=== PATIENT | female | born 1935 | race Caucasian/White ===

== ENCOUNTER 2017-10-06 14:14 | Emergency (ER) | payer MEDICARE ==
[2017-10-06 14:50] VITALS: BP 149/71
[2017-10-06] MEDS ORDERED: Albuterol 2.5 MG/3 ML NEB.SOL* (0.083%) INH ONE (15:08)
--- NOTE | 2017-10-06 15:08 | UC ---
UC General HPI - HPI Summary HPI Summary: pt is c/o a cough with chest congestion, throat irritation and hoarse voice. denies fever, cp, sob. went to her pcp and tx with mucinex. states seems to be worsening. - History of Current Complaint Chief Complaint: UCGeneralIllness Stated Complaint: ST/COUGH Time Seen by Provider: 10/06/17 15:02 Hx Obtained From: Patient Onset/Duration: Gradual Onset Timing: Constant Pain Intensity: 0 Aggravating: nothing Associated Signs & Symptoms: Positive: Cough. Negative: Chest Pain, Diaphoresis , Fever, SOB, Wheezing - Allergy/Home Medications Allergies/Adverse Reactions: Allergies Allergy/AdvReac Type Severity Reaction Status Date / Time NSAIDS (Non-Steroidal AdvReac See Comment Verified 10/06/17 14:54 Anti-Inflamma Home Medications: Home Medications Acetaminophen [Tylenol Arthritis] 650 mg PO Q8H PRN 10/06/17 [History Confirmed 10/06/17] Fluticasone NASAL SPRAY 50MCG* [Flonase NASAL SPRAY 50MCG*] 2 spray BOTH NARES DAILY 10/06/17 [History Confirmed 10/06/17] Loratadine 10 mg PO DAILY PRN 10/06/17 [History Confirmed 10/06/17] Valsartan/Hydrochlorothiazide [Valsartan-Hctz 320-12.5 mg Tab] 1 each PO DAILY 10/06/17 [History Confirmed 10/06/17] guaiFENesin ER TAB [Mucinex*] 600 mg PO BID 10/06/17 [History Confirmed 10/06/17 ] PMH/Surg Hx/FS Hx/Imm Hx Endocrine History: Dyslipidemia Cardiovascular History: Hypertension - Surgical History Surgical History: Yes Surgery Procedure, Year, and Place: cataracts - Family History Known Family History: Positive: Unknown - Social History Occupation: Retired Lives: Alone Alcohol Use: None Substance Use Type: None Smoking Status (MU): Never Smoked Tobacco - Immunization History Vaccination Up to Date: Yes Review of Systems Constitutional: Negative Skin: Negative Eyes: Negative ENT: Sore Throat Respiratory: Cough Cardiovascular: Negative Gastrointestinal: Negative Genitourinary: Negative Motor: Negative Neurovascular: Negative Musculoskeletal: Negative Neurological: Negative Psychological: Negative Is Patient Immunocompromised?: No All Other Systems Reviewed And Are Negative: Yes Physical Exam Triage Information Reviewed: Yes Appearance: Well-Appearing Vital Signs: Initial Vital Signs Temp 98.2 F 10/06/17 14:46 Pulse 94 10/06/17 14:46 Resp 18 10/06/17 14:46 BP 149/71 10/06/17 14:46 Pulse Ox 95 10/06/17 14:46 Vital Signs Reviewed: Yes Eyes: Positive: Conjunctiva Clear ENT: Positive: Pharynx normal, TMs normal, Hoarse voice, Uvula midline. Negative: Nasal drainage, Tonsillar swelling, Tonsillar exudate, Trismus, Muffled voice Neck: Positive: Supple, Nontender, No Lymphadenopathy Respiratory: Positive: No respiratory distress, Decreased breath sounds, Crackles - RLL Cardiovascular: Positive: RRR, No Murmur Abdomen Description: Positive: Nontender, No Organomegaly, Soft Bowel Sounds: Positive: Present Musculoskeletal: Positive: ROM Intact, Edema @ - trace R ankle(pt states chronic and unchanged) Neurological: Positive: Alert Psychological: Positive: Age Appropriate Behavior Skin Exam: Normal Diagnostics - Radiology No standard instances Xray Interpretation: No Acute Changes Radiology Interpretation Completed By: Radiologist - cxr Re-Evaluation - Re-Evaluation Second Eval Re-Evaluation Time: 15:50 Change: Unchanged - pt felt no different post neb tx. faint end insp crackles RLL post neb. Course/Dx - Course Course Of Treatment: HX HTN, tx plus acutely ill. no concern for current BP. non toxic, not hypoxic. ill for over 1 week and worsening plus focal crackles RLL thus will tx with doxycycline x 1 week and close f/u - Differential Dx - Multi-Symptom Provider Diagnoses: Congested cough. Possible early pneumonia Discharge - Sign-Out/Discharge Documenting (check all that apply): Discharge/Admit/Transfer - Discharge Plan Condition: Stable Disposition: HOME Prescriptions: DOXYcycline CAP(*) [DOXYcycline 100MG CAP(*)] 100 mg PO BID #14 cap Patient Education Materials: Acute Cough (ED) Referrals: Linad Cruz MD [Primary Care Provider] - 5 Days - Billing Disposition and Condition Condition: STABLE Disposition: HOME
--- NOTE | 2017-10-06 15:30 | RAD ---
HISTORY: Cough COMPARISONS: None VIEWS: 4: Frontal dual-energy and lateral views of the chest. FINDINGS: CARDIOMEDIASTINAL SILHOUETTE: The cardiomediastinal silhouette is normal. TAMERA: The tamera are normal. PLEURA: The costophrenic angles are sharp. No pleural abnormalities are noted. LUNG PARENCHYMA: There is hyperinflation with flattening of the diaphragm and expansion of the AP diameter of the chest. ABDOMEN: The upper abdomen is clear. There is no subphrenic gas. BONES AND SOFT TISSUES: Degenerative changes are noted along the spine. OTHER: None. IMPRESSION: HYPERINFLATION, CONSISTENT WITH COPD. NO ACTIVE CARDIOPULMONARY DISEASE.
== END 2017-10-06 16:06 | disposition home or self-care (01) ==
LOC: UCCORT 14:14
DX: R05 Cough (principal); Z88.6 Allergy status to analgesic agent; I10 Essential (primary) hypertension
CPT/HCPCS: 71046; 99212; G0463

== ENCOUNTER 2019-07-11 08:45 | Emergency (ER) | payer MEDICARE ==
--- OUTSIDE RECORDS SUMMARY | 2019-07-11 08:56 | XMS REPORT | Continuity of Care Document ---
:1935 External Reference #:[id number] Author Name Linda Cruz MD Address [address] [place] [address] Care Team Providers Name Role Phone Mena Hamm - Ophthalmology Care Team Information Betting Clerk Kelvin Mayfield MD - Neurological Care Team Information Betting Clerk [phone] Surgery Problems Active Problems Provider Date Glaucoma Linda Cruz MD Onset: 08/25/2012 Osteochondropathy Linda Cruz MD Onset: 08/25/2012 Overweight Linda Cruz MD Onset: 02/12/2011 Herpes zoster with complication Linda Cruz MD Onset: 09/25/2010 Mixed hyperlipidemia Linda Cruz MD Onset: 08/07/2010 Benign essential hypertension Linda Cruz MD Onset: 08/07/2010 Carotid artery occlusion Linda Cruz MD Onset: 08/07/2010 Impaired fasting glycaemia Linda Cruz MD Onset: 08/07/2010 Osteoporosis Linda Cruz MD Onset: 08/07/2010 Gastroesophageal reflux disease Linda Cruz MD Onset: 08/07/2010 Pure hypercholesterolemia Onset: 08/31/2014 Primary open-angle glaucoma, moderate stage Linda Cruz MD Onset: 08/31 Cerebral arterial aneurysm Linda Cruz MD Onset: 03/01/2015 Essential hypertension Linda Cruz MD Onset: 03/01/2015 Late effects of cerebrovascular disease Linda Cruz MD Onset: 2014 Bilateral primary open angle glaucoma Linda Cruz MD Onset: 10/10/2016 Allergic rhinitis Linda rCuz MD Onset: 04/24/2018 Disorder of bone density and structure, Linda Cruz MD Onset: 2017 unspecified Type 2 diabetes mellitus Linda Cruz MD Onset: 11/09/2018 Cerebral arterial aneurysm Linda Cruz MD Onset: 05/14/2019 Social History Type Date Description Comments Sex Unknown ETOH Use Rarely consumes alcohol Tobacco Use Start: Unknown End: Patient is a former occasionally for a few Unknown smoker years when she was young Smoking Status Reviewed: 11/09/18 Patient is a former occasionally for a few smoker years when she was young Exercise Exercises regularly Exercises regularly, Type/Frequency 4-5 times per week for 30min, occ yoga Allergies, Adverse Reactions, Alerts Description No Known Drug Allergies Medications Active Medications SIG Qnty Indications Ordering Date Provider Omeprazole 1 by mouth every 90caps K21.9 [place], 12/04/2017 20mg day 30min before MD Linda Capsules DR a meal Potassium Chloride ER 1 by mouth every 100tabs I10 [place], 05/06/2017 day MD Linda 10Meq Tablets ER Valsartan-Hydrochloro take by mouth one 90tabs I10 [place], 04/14/2017 thiazide tablet daily in MD Linda 320-12.5mg the morning Tablets Centrum Silver Ultra 1 by mouth daily M85.9 [place], 03/01/2015 Womens with meal with MD Linda Tablets meat fat oil Claritin 1 by mouth every J30.9 [place], 03/02/2014 10mg Capsules day prn caution MD Linda sedation Atorvastatin Calcium 1 by mouth every 90tabs E78.2 [place], 03/02/2014 day MD Linda 10mg Tablets Aspirin Adult Low 1 by mouth every I67.1 [place], 08/07/2010 Strength day MD Linda 81mg Tablets DR E78.2 Amlodipine Besylate 1 by mouth daily 90tabs I10 Linda Cruz MD 08/07 10mg Tablets Dorzolamide Instill 1 Drop In H40.1131 Unknown HCL/Timolol Maleate Both Eyes bid 22.3-6.8mg/ml Solution Latanoprost Instill 1 GTT In H40.1131 Unknown 0.005% [facility] Solution Immunizations CPT Code Status Date Vaccine Reaction Lot # [id number] Given 02/05/2019 Flu Vaccine NOS Q2039 Given 02/05/2018 Flu Vaccine NOS GIVEN AT PHARMACY Q2039 Given 01/29/2017 Flu Vaccine NOS given at [facility] [address] Given 02/15/2016 Influenza, Preservative Free Given at [facility],[address],[place] [address] Given 01/31/2016 Fluzone Highdose Age 65 And Over Preservative & Antibiotic Free 75519 Given 03/11/2015 Fluzone Highdose Age 65 And [facility] Preservative & Antibiotic Free 88799 Given 03/01/2015 Prevnar 13 Pneumococal [id number] Conjugate Vaccine 69585 Given 08/31/2014 Tdap (Adacel) Ages 7 And [id number] Above Only 63956 Given 03/07/2014 Afluria Or Fluvirin Flu Vac Intramuscular 48118 Given 02/26/2013 Afluria Or Fluvirin Flu Vac Intramuscular 94265 Given 02/17/2012 Afluria Or Fluvirin Flu Vac Intramuscular 81246 Given 05/26/2011 Zoster (Zostavax) 79414 Given 02/12/2011 Afluria Or Fluvirin Flu Vac Intramuscular 26806 Given 07/16/2004 Immunization Td 7 Yrs Or Older 09399 Given 03/29/2002 Pneumococcal 23 Immunization Adult Or Immunosuppressed Patient 88331 Refused 05/14/2019 Shingrix (Shingles) Zoster aware can get at pharmacy Vaccine HZV, Recombinant, Subunit, Adj Vital Signs Date Vital Result Comment 05/14/2019 1:05pm Weight 164.00 lb Heart Rate 80 /min BP Systolic 136 mmHg BP Diastolic 80 mmHg Respiratory Rate 18 /min Height 60.5 inches 5'0.50" BMI (Body Mass Index) 31.5 kg/m2 11/09/2018 1:41pm Weight 162.00 lb Heart Rate 76 /min BP Systolic 134 mmHg BP Diastolic 74 mmHg Respiratory Rate 18 /min Height 60.5 inches 5'0.50" BMI (Body Mass Index) 31.1 kg/m2 Results Test Acquired Date Facility Test Result H/L Range Note Comprehensive Met 05/10/2019 [facility] Sodium 133 mmol/L Low 135-146 1, 2 [facility] Potassium 3.6 mmol/L 3.5-5.2 Chloride# 95 mmol/L Low 97-110 3 Carbon Dioxide 29 mmol/L 24-34 Calcium 8.9 mg/dL 8.5-10.5 4 Glucose 131 mg/dL High 70-105 BUN 15 mg/dL 6-26 Creatinine 0.7 mg/dL 0.5-1.4 Total Protein 6.6 g/dL 6.0-8.0 Albumin 4.4 g/dL 3.6-4.9 Globulin 2.2 g/dL 2.0-3.5 A/G Ratio 2.0 Ratio 1.0-2.2 Total Bilirubin 0.3 mg/dL 0.1-1.3 Alkaline Phosphatase 88 U/L 24-140 Alt 18 U/L 3-42 Ast 16 U/L 8-42 Anion Gap 9 mmol/L 5-15 5 Female Egfr 81 >60 6 Male Egfr 88 >60 7 Lipid 05/10/2019 [facility] Cholesterol 154 mg/dL 50-199 Triglycerides 107 mg/dL 30-200 HDL 52 mg/dL 35-85 8 Chol/ HDL Ratio 3.0 ratio Low 3.7-5.6 VLDL 21 mg/dL 2-29 LDL (Calc) 81 mg/dL 20-99 9 Laboratory test finding 05/10/2019 [facility] CPK 56 U/L 12-199 Hemoglobin A1c 05/10/2019 [facility] Hemoglobin A1c 6.9 % High 4.1-5.9 Estimated Average Glucose Calc 151 mg/dL High 71-140 Laboratory test finding 05/10/2019 [facility] TSH 1.80 uIU/mL 0.35-4.94 1 before visit 05/2018 2 Updated reference range on new analyzer 3 Updated reference range on new analyzer 4 Updated reference range 09-09-2018 5 Updated Reference Range 6 Concerning GFR Guidelines for Americans: Normal function or mild renal disease, if clinically at risk: >/= 60 mL/min Moderately decreased: 30-59 Severely decreased: 15-29 Renal failure: <15 There is reduced accuracy above 60ml/min/1.73 m squared, but the numeric value may be clinically useful in the near 60 range 7 Concerning GFR Guidelines: Normal function or mild renal disease, if clinically at risk: >/= 60 mL/min Moderately decreased: 30-59 Severely decreased: 15-29 Renal failure: <15 There is reduced accuracy above 60ml/min/1.73 m squared, but the numeric value may be clinically useful in the near 60 range Glomerular Filtration Rate (GFR) is estimated based on the CKD-EPI equation, which assumes a steady state for creatinine as recommended by the National Kidney Disease Education Program in conjunction with the National Institutes of Health and the National Kidney Foundation. Clinical conditions in which it may be necessary to measure GFR by using clearance methods include extremes of age and body size, severe malnutrition or obesity, diseases of skeletal muscle, paraplegia or quadriplegia, vegetarian diet, rapidly changing kidney function, and calculation of the dose of potentially toxic drugs that are excreted by the kidneys. 8 Per NCEP ATP III Guidelines: Results lower than 40 mg/dL are suggestive of increased risk for coronary artery disease. Results > or = to 60 mg/dL are considered a negative risk factor. 9 Per NCEP ATP III Guidelines: Normal Population <130 Patients with medical conditions: CHD/DM Optimal: <100 Borderline high: 130-159 High: 160-189 Very high: >189 Procedures Date Code Description Status 08/10/2013 70471191 Mammogram Completed 02/24/2012 871018425 Bone Mineral Density Test Completed 04/11/2010 41443525 Colonoscopy Completed Medical Devices Description No Information Available Encounters Description No Information Available Assessments Date Code Description Provider 05/14/2019 E87.1 Hypo-osmolality and hyponatremia Linda Cruz MD 05/14/2019 E11.9 Type 2 diabetes mellitus without Linda Cruz MD complications 05/14/2019 I10 Essential (primary) hypertension Linda Cruz MD 05/14/2019 E78.2 Mixed hyperlipidemia Linda Cruz MD 05/14/2019 I67.1 Cerebral aneurysm, nonruptured Linda Cruz MD 05/14/2019 K21.9 Gastro-esophageal reflux disease without Linda Cruz MD esophagitis 05/14/2019 I65.23 Occlusion and stenosis of bilateral carotid Linda Cruz MD arteries 05/14/2019 H40.1131 Primary open-angle glaucoma, bilateral, mild Linda Cruz MD stage 05/14/2019 J30.9 Allergic rhinitis, unspecified Linda Cruz MD 05/14/2019 M85.9 Disorder of bone density and structure, Linda Cruz MD unspecified 05/14/2019 E66.9 Obesity, unspecified Linda Cruz MD 05/14/2019 Z68.31 Body mass index (BMI) 31.0-31.9, adult Linda Cruz MD 05/10/2019 I10 Essential (primary) hypertension Linda Cruz MD 05/10/2019 I10 Essential (primary) hypertension Schedule, Laboratory 05/10/2019 E78.2 Mixed hyperlipidemia Linda Cruz MD 05/10/2019 E78.2 Mixed hyperlipidemia Schedule, Laboratory 05/10/2019 E11.9 Type 2 diabetes mellitus without Linda Cruz MD complications 05/10/2019 E11.9 Type 2 diabetes mellitus without Schedule, Laboratory complications 05/10/2019 I10 Essential (primary) hypertension [facility] 05/10/2019 E78.2 Mixed hyperlipidemia [facility] 05/10/2019 E11.9 Type 2 diabetes mellitus without [facility] complications Plan of Treatment Future Appointment(s):11/08/2019 10:00 am - Schedule, Laboratory at [facility]2019 2:00 pm - Linda Cruz MD at [facility]05/14/2019 - Linda Cruz MDE87.1 Hypo-osmolality and hyponatremiaComments:low sodium. She is running low again, not adding any salt to food, and eating very low salt to beginwith. Advised low sodium can cause arrhythmia, dizziness, confusion, other problems. Recommend she add on 1 pinch of salt (which is about 500mg) to 2 meals a day to help. We will monitorFollow up:next visit early November for 30min annual [facility] nonfasting labs 5 days [id number] Type 2 diabetes mellitus without complicationsNew Labs:Hemoglobin A1c, Scheduled: 11/08/19Comments:DM--New diagnosis meeting criteria with repeated fasting glucose over 126 and glyco over 6.5. in 11/2018You have stable control of your diabetes with diet control I don't recommend doing any fingersticks or meds. But call/ seek care for increased thirst, urine frequency. Continue to target hgba1c <8Continue statin therapy Continue good bp control Please check your feet daily for injuries/wounds.Please see the optho/eye doc [id number] Essential (primary) hypertensionNew Labs:Comprehensive Met Panel-[facility], Scheduled: 11/08/19Comments: Htn--BPs appear stable and in good control, reminded goal of BP < 150/90 given age and conditions. Continue current meds, please call for medication side effects such as cough, rash or any concerns. Encouraged diet modified in fat and no added salt. Limit alcohol to < 1 per day. Encouraged regular exercise of 30 min most days per week. Encouraged pt to continue to monitor BP and call if > 140/90 on a regular basis. Please call if you feel your blood pressure is under 110 systolic and/or causing you symptoms such as dizziness, lightheadedness, or other concerns.E78.2 Mixed hyperlipidemiaNew Labs :Lipid, Scheduled: 11/08/19CPK, Scheduled: 11/08/19Comments:high cholper AHA guidelines due to known carotid artery plaquing, cerebral aneurysm, there is higher cardiovascular riskShe has been very stable, no strokes or heart attacks on the lower dose atorvastatin, she wants to continue current medications continue aspirin 81mg daily is also recommended. For lifestyle, we also recommend: Low fat ( under 30gm per day), low chol diet ( under 300mg per day chol)focus on lean meat, nonfat 1% dairy, increased veg and fruit, whole grains weight lossexercise buildto at least 30min per day. Reviewed signs and symptoms of cardiovascular disease.I67.1 Cerebral aneurysm, nonrupturedComments:middle cerebral artery aneurysm, right, care with Dr Lisandro Lester , neurosurgery, last visit 11/10/2018, has annual followup target good bp control with bp sys under 130. continue yseujciC89.9 Gastro-esophageal reflux disease without esophagitisNew Labs:Vitamin B12, Scheduled: 11/08/19Magnesium, Scheduled: Comments:GERD/esophagitis--Symptoms moderately well controlled on current acid laura therapy. Reminded pt we need to control the symptoms as those symptoms would be signs of gastric acid eroding on the esophagus, which can lead to complications. Call if has heartburn more than 2 - 3 times per week. Pt should take meds to control any break through symptoms. Please be sure to take your acid laura 30minbefore a meal. Discussed gerd precautions. limit caffeine to 1-2 per dayavoid foods that aggravateeat several smaller meals through the day instead of a few larger onesrecommend no food or drinks for2 hours before bed, le if you have night time symptoms. you should seek care if symptoms are not controlled with usual meds. She has not tolerated tapering of omeprazole Reminded risks for half-way use, check labs next timeI65.23 Occlusion and stenosis of bilateral carotid arteriesComments:carotid artery mild plaqueing on dopplers 08/2013,She continues on aspirin. She continues on a statin. Medicare will not pay for another test unless there are symptoms for mild plaque history.H40.1131 Primary open-angle glaucoma, bilateral, mild stageComments:glaucoma care with Dr HammJ30.9 Allergic rhinitis, unspecifiedComments:allergies--Encouraged pt to continue allergy meds during allergy season. Should take daily to gain the most benefit. Call prn increased allergy symptoms to add additional meds.M85.9 Disorder of bone density and structure, unspecifiedComments:osteopenia. last dexa 09/2011, had numbers in osteopenia range, but not severe enough to warrant medications. Counselled pt to consume either 3 dairy servings per day or no more than calcium 600mg twice daily with meals, and enough vit d to get to goal. Reviewed supplement options. Also regular weight bearing exercise is [id number] Obesity, unspecifiedComments:continue to work on diet, exercise , weight lossZ68.31 Body mass index (BMI) 31.0-31.9, adultComments:recommend reduced calorie diet and healthy diet and regular exercise to help with weight loss patient continues to work on reduced calorie diet and regular exercise Functional Status Description No Information Available Mental Status Description No Information Available Referrals Description No Information Available
[2019-07-11 09:07] VITALS: BP 150/73
--- NOTE | 2019-07-11 09:53 | UC ---
Back Pain HPI - HPI Summary HPI Summary: Pt presents with c/o right side back and rib pain. Pt states she tripped at home and fell from standing height. Pt denies CP, dizziness, loss of consciousness or hitting head, - History of Current Complaint Chief Complaint: UCBackPain Stated Complaint: BACK PAIN Time Seen by Provider: 07/11/19 09:30 Hx Obtained From: Patient ?: No Onset/Duration: Sudden Onset, Still Present Timing: Constant Severity Initially: Moderate Severity Currently: Moderate Pain Intensity: 10 Back Pain: Is Diffuse - back and ribs Character: Dull, Aching Aggravating Factor(s): Movement, Lifting, Bending, Walking, Cough Alleviating Factor(s): Rest, Position Associated Signs And Symptoms: Positive: Weakness - Risk Factors AAA Risk Factors: Negative TAD Risk Factors: Negative Cauda Equina Risk Factors: Negative Epidural Abscess Risk Factors: Negative - Allergies/Home Medications Allergies/Adverse Reactions: Allergies Allergy/AdvReac Type Severity Reaction Status Date / Time NSAIDS (Non-Steroidal AdvReac See Comment Verified 07/11/19 09:02 Anti-Inflamma Home Medications: Home Medications Aspirin EC TAB* [Ecotrin EC Low Dose 81 MG*] 81 mg PO DAILY 10/12/15 [History Confirmed 07/11/19] Atorvastatin* [Lipitor 10 MG*] 10 mg PO QPM 10/12/15 [History Confirmed 07/11/19 ] Dorzolamide/Timolol OPTH (NF) [Cosopt (NF)] 1 drop BOTH EYES BID 10/12/15 [ History Confirmed 07/11/19] Latanoprost 0.005%* [Xalatan 0.005%*] 1 drop BOTH EYES QPM 10/12/15 [History Confirmed 07/11/19] Multivitamins/Minerals TAB* [Thera M Plus TAB*] 1 tab PO DAILY 10/12/15 [ History Confirmed 07/11/19] Potassium Chlor TAB* [Klor Con ER TAB 10 MEQ*] 10 meq PO DAILY 10/12/15 [ History Confirmed 07/11/19] amLODIPine TAB* [Norvasc 5 mg TAB*] 10 mg PO DAILY 10/12/15 [History Confirmed 07/11/19] diPHENhydraMINE PO* [Benadryl PO 25 MG TAB*] 25 mg PO BEDTIME PRN 10/12/15 [ History Confirmed 07/11/19] Acetaminophen [Tylenol Arthritis] 650 mg PO Q8H PRN 10/06/17 [History Confirmed 07/11/19] Loratadine 10 mg PO DAILY PRN 10/06/17 [History Confirmed 07/11/19] Valsartan/Hydrochlorothiazide [Valsartan-Hctz 320-12.5 mg Tab] 1 each PO DAILY 10/06/17 [History Confirmed 07/11/19] Ranitidine TAB (NF) [Zantac TAB (NF)] 150 mg PO DAILY 07/11/19 [History Confirmed 07/11/19] PMH/Surg Hx/FS Hx/Imm Hx Previously Healthy: Yes Endocrine History: Dyslipidemia Cardiovascular History: Cardiac Disease, Hypertension - Surgical History Surgical History: Yes Surgery Procedure, Year, and Place: cataracts. cholecystectomy. tubal ligation - Family History Known Family History: Positive: Unknown - Social History Occupation: Retired Lives: Alone Alcohol Use: None Substance Use Type: None Smoking Status (MU): Never Smoked Tobacco Have You Smoked in the Last Year: No - Immunization History Vaccination Up to Date: Yes Review of Systems All Other Systems Reviewed And Are Negative: Yes Constitutional: Positive: Negative Skin: Positive: Negative Eyes: Positive: Negative ENT: Positive: Negative Respiratory: Positive: Other - c/o rib/ back pain with inspiration Cardiovascular: Positive: Negative Gastrointestinal: Positive: Negative Genitourinary: Positive: Negative Motor: Positive: Decreased ROM - generalized due to tenderness Neurovascular: Positive: Negative Musculoskeletal: Positive: Arthralgia - rigth side rib, back, Decreased ROM, Myalgia Neurological/Mental Status: Positive: Negative Psychological: Positive: Negative Is Patient Immunocompromised?: No Physical Exam Triage Information Reviewed: Yes Appearance: Well-Appearing Vital Signs: Initial Vital Signs Temp 96.9 F 07/11/19 09:03 Pulse 91 07/11/19 09:03 Resp 18 07/11/19 09:03 BP 150/73 07/11/19 09:03 Pulse Ox 99 07/11/19 09:03 Vital Signs Reviewed: Yes Eye Exam: Normal ENT Exam: Normal Dental Exam: Normal Neck exam: Normal Respiratory: Positive: Decreased breath sounds Cardiovascular Exam: Normal Musculoskeletal: Positive: ROM Limited @ - trunk/ribs Neurological Exam: Normal Psychological Exam: Normal Skin Exam: Normal Diagnostics - Radiology No standard instances Radiology Interpretation Completed By: Radiologist - positive for rib fractures Back Pain Course/Dx - Differential Dx/Diagnosis Differential Diagnosis/HQI/PQRI: Fracture, Strain, Sprain Provider Diagnosis: Ribs, multiple fractures Discharge ED - Sign-Out/Discharge Documenting (check all that apply): Patient Departure All imaging exams completed and their final reports reviewed: Yes - Discharge Plan Condition: Stable Disposition: HOME Patient Education Materials: Rib Fracture (ED) Referrals: Joshua Treadwell MD [Medical Doctor] - If Needed Linda Cruz MD [Primary Care Provider] - 2 Weeks Additional Instructions: Please follow up with your PCP in 2 weeks or as needed. If your symptoms do not improve or they worsen, please seek help as soon as possible. Please use the inspirometer as directed. - Billing Disposition and Condition Condition: STABLE Disposition: Home
== END 2019-07-11 10:31 | disposition home or self-care (01) ==
LOC: UCCORT 08:45
DX: S22.41XA Multiple fractures of ribs, right side, initial encounter for closed fracture (principal); I10 Essential (primary) hypertension; E78.5 Hyperlipidemia, unspecified; W18.39XA Other fall on same level, initial encounter; Y92.9 Unspecified place or not applicable; Z88.6 Allergy status to analgesic agent; Z79.82 Long term (current) use of aspirin; Z79.899 Other long term (current) drug therapy
CPT/HCPCS: 71111; 99212; G0463